=== PATIENT | female | born 1950 | race Caucasian/White ===

== ENCOUNTER → 2016-10-29 18:57 | Outpatient (CLI) | payer MEDICARE ==
[2015-11-06 13:33] VITALS: BMI 33.0
[~2016-10-29 18:57] MED LIST: BACLOFEN10 MG PO; CALCIUM CA500 MG/51 PO; DICLOFENAC SODI50 MG PO; GLUCOPHAGE500 MG PO; LIPITOR20 MG PO; OYST-CAL-5001 TAB PO; PERCOCET 10/3251 TA1 PO; SINEQUAN25 MG PO; TIROSINT88 MCG PO; TRIAMCINOLONE A17 GM NASAL; ULTRAM50 MG PO
== END | disposition home or self-care (01) ==
LOC: D.MAMMO 10-07 11:00
DX: Z12.31 Encounter for screening mammogram for malignant neoplasm of breast (principal)

== ENCOUNTER 2018-02-22 16:38 | Emergency (ER) | payer MEDICARE ==
[~2018-02-22] VITALS: Ht 160 cm; Wt 88.6 kg
[2018-02-22 16:43] VITALS: Ht 160 cm; Wt 88.6 kg
[2018-02-22] MEDS ORDERED: VOLTAREN75 MG PO (20:48)
[2018-02-22] MEDS ORDERED: ROBAXIN-750750 MG PO (20:48)
[2018-02-22 21:15] VITALS: BP 162/85
== END 2018-02-22 21:16 | disposition home or self-care (01) ==
LOC: D.ER 16:38
DX: M79.601 Pain in right arm (principal); R20.2 Paresthesia of skin; I10 Essential (primary) hypertension; R73.03 Prediabetes

== ENCOUNTER → 2018-09-16 16:50 | Outpatient (CLI) | payer MEDICARE ==
[2018-02-22 16:43] VITALS: BMI 34.6
[~2018-09-16 16:50] MED LIST changes: +ROBAXIN-750750 MG PO; +VOLTAREN75 MG PO
== END | disposition home or self-care (01) ==
LOC: D.MAMMO 09-01 15:30
DX: Z12.31 Encounter for screening mammogram for malignant neoplasm of breast (principal)

== ENCOUNTER → 2020-04-21 20:50 | Outpatient (CLI) | payer MEDICARE ==
[2018-02-22 16:43] VITALS: BMI 34.6
== END | disposition home or self-care (01) ==
LOC: D.MAMMO 04-20 10:30
PROVIDERS: ATTEND Family Medicine
DX: Z12.31 Encounter for screening mammogram for malignant neoplasm of breast (principal)